=== PATIENT | male | born 1945 | race Caucasian/White ===

== ENCOUNTER 2019-08-26 09:08 | Outpatient (CLI) | payer OTHER, SELFPAY ==
--- NOTE | 2019-08-26 09:17 | MR_ITS ---
WS: [id number] MRI LUMBAR SPINE NONCONTRAST HISTORY: LOW BACK PAIN COMPARISON: 04/17/2018 TECHNIQUE: Sagittal and axial multisequence imaging is submitted. Mild thoracolumbar scoliosis. Multilevel spondylitic changes in the thoracic spine. Straightening of the normal lumbar lordosis. No acute marrow edema. Chronic marrow changes in the end plates of L1 and L2. Anterior wedging of L1-L2 by 10-20% is stable. Severe degenerative disc space na rrowing at T12-L1. Disc desiccation at all levels. Conus terminates normally at L1. L1-L2: Mild bilateral facet joint arthritis, LEFT greater than RIGHT without stenosis. L2-L3: Diffuse annular disc bulging with facet and ligamentum flavum arthritis. Very mild central and RIGHT subarticular recess stenosis. Similar to the prior study. L3-L4: Moderate annular disc bulging with mild facet and ligamentum flavum arthritis. Mild central an d mild to moderate bilateral foraminal stenosis. L4-L5: Diffuse annular disc bulging. There is a more focal posterior central broad-based protrusion d eforming the ventral thecal sac. Similar to the prior examination. Mild to moderate central with RIGH T subarticular recess stenosis and moderate bilateral foraminal stenosis. L5-S1: Mild annular disc bulging with facet joint arthritis and hypertrophy. Similar to the prior olayinka dy. Bilateral renal cysts are again identified. MR/MR lumbar spine wo con* [id number] IMPRESSION: 1. Multilevel degenerative changes throughout the lumbar spine with mild to mo derate stenoses as above. No significant progression since 04/17/2018. 2. Mild to moderate central stenosis at L4-5 and mild central stenosis at L2-3 and L3-4. 3. Mild to moderate RIGHT subarticular recess stenosis and moderate bilateral foraminal stenosis at L4-5. 4. Mild to moderate bilateral foraminal stenosis at L3-4. 5. Stable chronic anterior compression fractures of L1 and L2.
== END 2019-08-26 09:09 | disposition home or self-care (01) ==
LOC: RADWPI 09:12
PROVIDERS: Family Provider Emergency Medicine Emergency Medical Services; PCP Emergency Medicine Emergency Medical Services; Visit Provider Emergency Medicine Emergency Medical Services
DX: M54.5 Low back pain (principal)
CPT/HCPCS: 72148

== ENCOUNTER 2019-09-17 15:20 | Outpatient (CLI) | payer OTHER, SELFPAY ==
--- NOTE | 2019-09-17 15:23 | MR_ITS ---
WS: [id number] MRI THORACIC SPINE WITHOUT CONTRAST TECHNIQUE: Sagittal T1, T2 and STIR imaging. Axial T2 imaging. Noncontrast imaging obtained. CLINICAL INFORMATION: CHRONIC BACK PAIN COMPARISON: None. FINDINGS: Mild thoracic curve. Mild thoracic kyphosis. Anterior hypertrophic changes. A few incidental hemangio mas in the mid thoracic spine. Chronic appearing anterior wedging at T11 and L1. No acute compression fractures. Cord signal is normal. Tiny central disc protrusion at T1-2 with slight effacement of the ventral thecal sac. No other signi ficant disc protrusions or extrusions. Mild right T9-10 and T10-11 bony foraminal narrowing. Moderate facet arthropathy in the lower thoracic spine. Both adrenal glands are normal. Bilateral robson al cysts. Normal caliber thoracic aorta. MR/MR thoracic spin wo con* [id number] IMPRESSION: 1. Mild thoracic curve. Mild thoracic kyphosis. 2. No acute compression fractures. 3. No high-grade central canal stenosis. Cord signal is normal. 4. Tiny central protrusion T1-2 with slight effacement of ventral thecal sac. 5. Moderate facet arthropathy lower thoracic spine. 6. Mild right T9-T10 and T10-11 bony foraminal narrowing.
== END 2019-09-17 15:21 | disposition home or self-care (01) ==
LOC: RADWPI 15:22
PROVIDERS: Family Provider Emergency Medicine Emergency Medical Services; PCP Emergency Medicine Emergency Medical Services; Visit Provider Emergency Medicine Emergency Medical Services
DX: M54.9 Dorsalgia, unspecified (principal); G89.29 Other chronic pain; M47.814 Spondylosis without myelopathy or radiculopathy, thoracic region; M51.24 Other intervertebral disc displacement, thoracic region
CPT/HCPCS: 72146

== ENCOUNTER 2021-02-21 09:09 | Outpatient (CLI) | payer OTHER, SELFPAY ==
--- NOTE | 2021-02-21 | MR_ITS ---
WS: [id number] MRI LUMBAR SPINE WITH CONTRAST TECHNIQUE: Sagittal T1, T2 and STIR imaging. Axial T1 and T2 imaging. Post gadolinium imaging was obt ained. CLINICAL INFORMATION: BACK PAIN, OA, BONE SPURS, ABNORMAL XRAY, REFER TO PAIN MGT COMPARISON: 08/26/19 FINDINGS: Mild lumbar curve. No acute compression. No high-grade central canal stenosis. Mild chronic appearing compression with anterior wedging at L1 and L2 unchanged from August 26, 2019. No high-grade central c anal stenosis. L1-L2: No significant disc bulging. Spinal canal and foramen are patent. Mild facet arthropathy. L2-L3: Mild disc bulging with slight narrowing of the right subarticular recess. Mild facet arthropat hy. Spinal canal and foramen are patent. L3-L4: Mild disc bulging with slight effacement of ventral thecal sac. Mild central canal stenosis. M ild facet arthropathy. Mild right foraminal narrowing. L4-L5: Mild annular bulging with impingement right subarticular recess. Mild central canal stenosis. Mild facet arthropathy. Mild right foraminal narrowing. L5-S1: Mild annular bulging. Spinal canal and foramen are patent. Moderate facet arthropathy. Partially visualized renal cysts. MR/MR lumbar spine wo/w con [id number] IMPRESSION: 1. Mild lumbar curve. No acute compression. No high-grade central canal stenos is. 2. Mild central canal stenosis L2-L3, L3-L4 and L4-L5 unchanged from previous. 3. Mild right L3-L4 and right L4-5 foraminal narrowing. 4. Moderate facet arthropathy L3-L5. 5. Partially visualized renal cysts.
[2021-02-21] MEDS: gadobenate dimeglumine 20 mL vial IV (11:03)
== END 2021-02-21 09:10 | disposition home or self-care (01) ==
LOC: RADSHAW 09:14
PROVIDERS: PCP Emergency Medicine Emergency Medical Services; Visit Provider Emergency Medicine Emergency Medical Services
DX: M19.90 Unspecified osteoarthritis, unspecified site (principal); R93.89 Abnormal findings on diagnostic imaging of other specified body structures; Q61.02 Congenital multiple renal cysts; M47.816 Spondylosis without myelopathy or radiculopathy, lumbar region; M48.061 Spinal stenosis, lumbar region without neurogenic claudication
CPT/HCPCS: 72158; A9577

== ENCOUNTER 2021-02-22 11:36 | Outpatient (CLI) | payer OTHER, SELFPAY ==
--- NOTE | 2021-02-17 11:00 | MR_ITS ---
WS: [id number] MRI THORACIC SPINE with and without contrast. HISTORY: ARTHRITIS, BONE SPURS, REFERRING TO PAIN MANAGEMENT COMPARISON: None available. TECHNIQUE: Multiplanar sequences are performed in sagittal and axial planes. On the survey image through the cervical and thoracic spine there is encroachment upon the ventral ce rvical cord at the C2 level. Only seen on the sagittal sequences this is probably an osteophyte from the posterior C2 vertebral body. There is additional cervical stenosis at multiple levels due to disc and osteophyte disease. Mild straightening of the normal thoracic spine. Very mild anterior wedging of T4. Benign hemangiomas at T6 and T7. There is additional chronic compression fracture of L1 by 20%. No retropulsion. Signal within the cord is normal. No cord atrophy or enlargement. T1-2: Normal. T2-3: Normal. T3-4: Mild RIGHT facet arthritis. T4-5: Mild bilateral facet arthritis and foraminal narrowing. T5-6: Mild bilateral facet arthritis. T6-7: Mild facet arthritis. T7-8: Normal. T8-9: Mild bilateral facet arthritis and foraminal narrowing. T9-10: Mild facet joint arthritis, greatest on the RIGHT. Mild foraminal narrowing. There is additio nal very small RIGHT paracentral disc protrusion. T10-11: Bilateral facet arthritis. T11-12: Normal. Bilateral renal cysts. Postcontrast imaging is negative for discitis or osteomyelitis. No enhancement within the cord. MR/MR thoracic spine wo/w [id number] IMPRESSION: 1. Mild bilateral facet joint arthritis throughout the thoracic spine. 2. Mild remote compression fractures at T6, T7 and L1. 3. No enhancing masses or cord atrophy. 4. Bilateral renal cysts.
[2021-02-17] MEDS: gadobenate dimeglumine 20 mL vial IV (12:11)
--- NOTE | 2021-02-22 | MR_ITS ---
WS: [id number] MRI CERVICAL SPINE NONCONTRAST AND CONTRAST TECHNIQUE: Sagittal T1, T2 and STIR imaging. Axial T2, gradient, and fiesta imaging. Post gadolinium imaging was obtained with fat suppression technique. CLINICAL INFORMATION: CERVICALGIA, REFERRING TO PAIN MGT COMPARISON: None. FINDINGS: Moderate spondylitic changes cervical spine. Straightening of the normal cervical lordosis. Mild disc bulging worse at C4-C6. Cord signal is normal. No abnormal gadolinium enhancement. C2-C3: Small central disc osteophyte complex. Ossification posterior to the C2 vertebral body. Mild c entral canal stenosis. Foramen are patent. Mild facet arthropathy. C3-C4: Slight anterolisthesis C3 on C4. Small broad-based central disc osteophyte complex with slight contact of the cervical cord. Mild central canal stenosis. Mild left foraminal narrowing. Mild facet arthropathy. C4-C5: Central disc osteophyte protrusion with indentation on cervical cord. Mild to moderate central canal stenosis. Moderate bilateral bony foraminal narrowing. Mild facet arthropathy. C5-C6: Central disc osteophyte complex with indentation on the ventral cervical cord. Mild to moderat e central canal stenosis. Moderate bilateral bony foraminal narrowing. Moderate facet arthropathy. C6-C7: Central disc osteophyte complex with slight indentation on cervical cord. Mild central canal s tenosis. Moderate left and no significant right foraminal narrowing. C7-T1: Normal. Visualized brain stem structures: Normal. Prevertebral soft tissues: Normal. MR/MR cervical spine wo/w [id number] IMPRESSION: 1. Straightening of the normal cervical lordosis with moderate spondylitic reina nges. Cord signal is normal. 2. Mild to moderate central canal stenosis C4-C5 and C5-C6 due to central disc osteophyte complexes. Mild central canal stenosis C6-C7. 3. 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 4. Moderate bony foraminal narrowing worse at bilateral C4-5, left C5-C6 and l eft C6-C7.
[2021-02-22] MEDS: gadobenate dimeglumine 20 mL vial IV (12:55)
== END 2021-02-22 11:37 | disposition home or self-care (01) ==
LOC: RADSHAW 11:37
PROVIDERS: PCP Emergency Medicine Emergency Medical Services; Visit Provider Emergency Medicine Emergency Medical Services
DX: M48.02 Spinal stenosis, cervical region (principal); M25.78 Osteophyte, vertebrae; M47.814 Spondylosis without myelopathy or radiculopathy, thoracic region; Q61.02 Congenital multiple renal cysts
CPT/HCPCS: 72156; 72157; A9577

== ENCOUNTER → 2021-03-08 15:35 | Outpatient (BNVA) | payer OTHER, SELFPAY | PROVIDERS: PCP Emergency Medicine Emergency Medical Services; Referring Provider Emergency Medicine Emergency Medical Services; Visit Provider Orthopaedic Surgery | DX: M54.9 Dorsalgia, unspecified (principal) | CPT/HCPCS: 72072; 72110 ==

== ENCOUNTER 2022-07-25 13:52 | Emergency (ER) | payer OTHER, SELFPAY ==
[2022-07-25 14:14] VITALS: BP 128/73; PULSE 74; RESP 14; TEMP 36.9; O2SAT 95; BMI 34.8
--- NOTE | 2022-07-25 14:53 | XR_ITS ---
WS: [email or web address] Exam: XR hip RT 2-3V wo/w pel* [id number] Date/Time of Exam: 07/25/2022 2:59 PM Reason For Exam: fall/pain; one view pelvis too please No acute hip fracture or dislocation. [id number] degenerative changes of the joint compartment and acetabulum. No acute pelvic fracture identified. Signs of diffuse idiopathic skeletal hyperostosi s. XR/XR hip RT 2-3V wo/w pel* [id number] IMPRESSION: 1. Degenerative changes. No acute fracture.
--- NOTE | 2022-07-25 14:53 | CT_ITS ---
WS: [id number] CT LUMBAR SPINE, noncontrast. HISTORY: fall/trauma TECHNIQUE: Contiguous 2.0 mm axial imaging are performed. Sagittal and coronal reformats are submitte d and reviewed. All CT scans at [facility] use at least one of these dose optimization techni ques: automated exposure control; mA and/or kV adjustment per patient size (includes targeted exams w here dose is matched to clinical indication); or iterative reconstruction. IV contrast: None DLP: 1088.05 mGy.cm COMPARISON: Radiographs 03/08/2021 and prior MRI 02/21/2021 Very mild anterior wedging of L1 and L2, similar to the prior MRI from 2020. No new compression fract ure is identified. Diffuse osteopenia. No sacral fracture. L1-2: Facet arthritis. No stenosis. L2-3: Moderate annular disc bulging with osteophytic ridging and facet arthritis. Mild central, bilat eral subarticular recess and foraminal stenosis. L3-4: Diffuse annular disc bulging, osteophytic ridging, ligamentum flavum and facet arthritis. Moder ate to severe central, bilateral subarticular recess and moderate to severe foraminal stenosis. L4-5: Osteophytic ridging, annular disc bulging, facet arthritis. RIGHT paracentral and proximal fora noe disc protrusion. Severe central, bilateral subarticular recess and foraminal stenosis, RIGHT gr eater than LEFT. L5-S1: Mild annular disc bulging. Facet arthritis. Encroachment upon the subarticular recesses and fo ramina. Very tiny RIGHT paracentral disc protrusion with slight contact on the RIGHT S1 nerve root. M oderate bilateral foraminal and RIGHT subarticular recess stenosis. Moderate atherosclerosis throughout the aorta. Bilateral low-attenuation renal masses. Sigmoid divert icular disease. CT/CT lumbar spine wo con* [id number] IMPRESSION: 1. No acute lumbar spine fracture. 2. Long-term stability mild anterior wedging of L1 and L2. 3. Severe central, bilateral subarticular recess and foraminal stenosis at L4- 5. 4. Moderate to severe central, bilateral subarticular recess and moderate to s evere foraminal stenosis at L3-4. 5. Moderate bilateral and RIGHT subarticular recess stenosis at L5-S1. 6. RIGHT paracentral and proximal foraminal disc protrusion at L5-S1 with mild contact on the exiting RIGHT S1 nerve root. 7. Mild central, bilateral subarticular recess and foraminal stenosis at L2-3.
--- NOTE | 2022-07-25 14:53 | XR_ITS ---
WS: [id number] Exam: XR chest 1V portable [id number] Date/Time of Exam: 07/25/2022 2:59 PM Reason For Exam: fatigue/weakness Comparison 10/23/2008. The lungs are clear and fully inflated. Normal cardiomediastinal silhouette. No pleural effusions. Bony structures are intact. XR/XR chest 1V portable [id number] IMPRESSION: 1. No acute cardiopulmonary process.
--- NOTE | 2022-07-25 14:54 | ED_ITS ---
HPI - Fall General: Chief Complaint: Fall Stated Complaint: back low back/ Right hip pain Time Seen by Provider: 07/25/22 14:33 Source: patient Mode of arrival: ambulatory Limitations: no limitations History of Present Illness: Patient is a very nice 77-year-old male who presents to ED today along with his for evaluation of right hip and back pain following a fall 4 days ago. Patient and family states he has had a history of multiple falls over the past several months. They seem to think it is related to hypoglycemia although state they do not often check his blood sugars after falls. Patient does not seem to be able to tell me what exactly it is that causes him to fall (i.e. dizziness/ lightheadedness/stumbling/syncope) but just thinks it is related to his blood sugars. Falls do not seem to be mechanical as he denies tripping. He states 4 days ago he fell onto his right hip and back and has had pain since. He is currently rating it at a 6/10 but states at its worst is 10/10. He is able to ambulate without assistance but complains of pain in the posterior right hip when he does so. He denies striking his head or LOC. No neck pain. Patient states he keeps detailed logs of his blood sugars and states they run anywhere from 140-120s all the way down into the 20-40s. Patient states he takes NovoLog and Lantus. When asked if he has any other complaints currently other than low back and right hip pain he tells me I just do not feel good and thinks his blood sugar is currently low. complaint: fall Onset (ago): day(s) Fall from: standing Fall witnessed: yes, by family Place fall occurred: home Loss of consciousness: None Prolonged down time: no Symptoms prior to fall: other (unknown) Context: history of frequent falls Location of injury: back Severity: moderate Severity scale (1-10): 6 Associated symptoms-after fall: Denies abdominal pain, chest pain, confusion, difficulty walking, headache(s), hematuria, lightheadedness, neck pain or vertigo Review of Systems Const: Reports: other (reports not feeling well ); Denies: fever(s), chills, body aches, fatigue or malaise Eyes: Denies: change in vision, blurry vision, photophobia, eye discharge, floaters or seeing flashes ENMT: Denies: throat pain, odynophagia, ear or mastoid pain, ear discharge, nasal discharge, epistaxis or sinus pain Card: Denies: chest pain, palpitations, lightheadedness, syncope or pre- syncope Resp: Denies: dyspnea or pain on inspiration GI: Denies: abdominal pain : Denies: flank pain or hematuria Musc: Reports: back pain and joint pain (R hip); Denies: neck pain, extremity pain, extremity swelling, joint swelling, joint redness, joint warmth, joint stiffness, limited range of motion, muscle cramps or muscle weakness Skin/Breast: Denies: rash Neuro: Reports: frequent falls; Denies: headache(s), numbness in extremities, weakness in extremities, sensory changes, lack of coordination, difficulty walking, dizziness, vertigo, confusion, behavioral changes, Slurred speech present, difficulty communicating thoughts or seizure-like activity PFSH ED PFSH: Medical History Arthritis Depressive disorder, not elsewhere classified Diabetes mellitus Essential (primary) hypertension Hypertension Insomnia Surgical History History of heart artery stent History of heart surgery History of thumb surgery History of tonsillectomy Family History Other Cancer Diabetes Social History Household members: spouse Marital status: Current occupational status: retired Physical Exam Const: COMMON NORMALS: no acute distress, average body habitus, patient oriented x3, no limitations, healthy appearing, alert and well nourished GENERAL APPEARANCE: cooperative ORIENTATION/CONSCIOUSNESS: Yes awake, Yes oriented to person, Yes oriented to place and Yes oriented to time HENMT: COMMON NORMALS: normocephalic, atraumatic and TM's normal bilaterally HEAD & SCALP: normal to inspection, normocephalic and atraumatic; no Berger's sign, no hematoma and no raccoon eyes FACE & SINUS: normal facial exam TYMPANIC MEMBRANE: TM's normal bilaterally MOUTH: other (no intraoral injuries noted) Eye: COMMON NORMALS: Equal, round and reactive pupils present and EOMs intact bilaterally GENERAL EYE: appearance normal, both eyes and all related structures and normal light reflex PUPIL: Yes Equal, round and reactive pupils present DIRECT OPHTHALMOSCOPY: Yes normal light reflex Neck/C-Spine: COMMON NORMALS: full ROM GENERAL: Yes normal visual inspection CERVICAL SPINE: Yes cervical ROM normal, No pain with cervical ROM, No Cervical spine tenderness, No step off deformity and No Paracervical muscle tenderness Chest: COMMONS NORMALS: normal inspection of the chest and normal palpation of entire chest wall Resp: COMMON NORMALS: normal respiratory effort and clear to auscultation bilaterally AUSCULTATION: clear to auscultation bilaterally Cardio: COMMON NORMALS: regular rate and regular rhythm RATE: regular rate RHYTHM: regular rhythm GI: COMMON NORMALS: Normal to inspection, nondistended, normoactive bowel sounds present, Soft to palpation, non-tender, No hepatosplenomegaly present and no masses INSPECTION: Yes normal to inspection and No abdominal wall ecchymosis AUSCULTATION: Yes normoactive bowel sounds PALPATION: Yes Soft to palpation and Yes No hepatosplenomegaly present Back/Pelvis: COMMON NORMALS: thoracic and lumbar spine normal to inspection THORACIC SPINE/UPPER BACK: Yes normal to inspection, No thoracic spinal tenderness and No paraspinal muscle tenderness LUMBAR SPINE/LOWER BACK: Yes normal to inspection, Yes pain with ROM, Yes lumbar spinal tenderness (lower L spine), Yes paraspinal muscle tenderness Lumbar paraspinal muscle tenderness: right and Yes straight leg raise negative bilaterally PELVIS: Yes buttocks normal and No sciatic notch tenderness SACRUM: no tenderness COCCYX: no tenderness Extremity: COMMON NORMALS: normal to inspection, full ROM, capillary refill normal, no joint enlargement, no clubbing, cyanosis or edema, no calf tenderness and no pedal edema GENERAL: Yes normal exam except as noted RIGHT LOWER EXTREMITY: Yes hip joint Right hip: Yes palpation (TTP posteriorly), Yes ROM (normal but elicits discomfort) and Yes neurovascular exam (normal) Neuro: KEY COMA SCALE: document GCS findings Key coma scale eye opening: Spontaneous [place] coma scale verbal response: Orientated Key coma scale motor response: Obey commands [place] coma scale total score: 15 COMMON NORMALS: patient oriented x3, CN's II-XII intact bilaterally, moves all extremi ties, no focal motor deficits, no sensory deficits noted and gait normal SENSORIUM/ORIENTATION: Yes alert, Yes oriented to person, Yes oriented to place and Yes oriented to time SPEECH: speech normal GAIT: Yes Normal gait present Skin: COMMON NORMALS: no rashes or lesions noted GENERAL SKIN EXAM: no rashes or lesions noted TRAUMA: no lacerations or abrasions Course Vital Signs: Vital signs: Vital Signs Temperature 98.4 F 07/25/22 14:14 Pulse Rate 74 07/25/22 17:02 Respiratory Rate 16 07/25/22 16:32 Blood Pressure 143/82 07/25/22 17:02 Pulse Oximetry 94 07/25/22 17:02 Oxygen Delivery Me thod Room Air 07/25/22 16:32 MDM - Fall Medical Decision Making Patient here with lower back pain and right hip pain following a fall 4 days ago. XR/CT scans negative for acute injuries unknown exact details into what caused him to fall that he believes it is secondary to hypoglycemia. He has had several other falls over the past few months. He does have detailed glucose logs and sugars range anywhere from 140 down into the 20s. We discussed decreasing his sliding scale insulin or even discontinuing it altogether to see if this helps his hypoglycemic episodes. Discussed in length diabetic diet. Patient's vital signs are stable. POC glucose upon arrival was in the 40s. Patient admittedly did not feel well however after eating/drinking he states he feels much better. Patient's blood work overall is nonactionable. His baseline troponin was elevated at 18. He has no complaints of chest pain. His EKG shows no ischemic changes. No priors. He does not want to stay for 2-hour troponin. I think this is reasonable. Recommend patient follow-[facility] for [facility] of his blood sugars. They can also follow-up with him in regards to the hip and back pain if they fail to improve with conservative therapies at home. He is requesting something to help with his discomfort. He states he already takes meloxicam daily. Lab Data 07/25/22 15:33 07/25/22 15:33 Radiology Impressions Chest X-Ray 07/25/22 14:53 IMPRESSION: 1. No acute cardiopulmonary process. Hip/Pelvis X-Ray 07/25/22 14:53 IMPRESSION: 1. Degenerative changes. No acute fracture. Lumbar Spine CT 07/25/22 14:53 IMPRESSION: 1. No acute lumbar spine fracture. 2. Long-term stability mild anterior wedging of L1 and L2. 3. Severe central, bilateral subarticular recess and foraminal stenosis at L4- 5. 4. Moderate to severe central, bilateral subarticular recess and moderate to severe foraminal stenosis at L3-4. 5. Moderate bilateral and RIGHT subarticular recess stenosis at L5-S1. 6. RIGHT paracentral and proximal foraminal disc protrusion at L5-S1 with mild contact on the exiting RIGHT S1 nerve root. 7. Mild central, bilateral subarticular recess and foraminal stenosis at L2-3. Laboratory Results WBC 6.9 10^3/uL (4.0-10.0) 07/25/22 15:33 RBC 5.92 10^6/uL (4.1-5.3) H 07/25/22 15:33 Hgb 17.5 g/dL (11.7-16.6) H 07/25/22 15:33 Hct 51.9 % (42.0-52.0) 07/25/22 15:33 MCV 87.7 fl (80-94) 07/25/22 15:33 MCH 29.6 pg (28.0-34.0) 07/25/22 15:33 MCHC 33.7 g/dL (30.0-36.0) 07/25/22 15:33 RDW 12.1 % (12.1-15.1) 07/25/22 15:33 Plt Count 239 10^3/cmm (130-400) 07/25/22 15:33 MPV 10.0 fL (7.4-10.4) 07/25/22 15:33 Neut % (Auto) 59.6 % 07/25/22 15:33 Lymph % (Auto) 25.5 % 07/25/22 15:33 [place] % (Auto) 10.8 % 07/25/22 15:33 Eos % (Auto) 2.5 % 07/25/22 15:33 Baso % (Auto) 1.2 % 07/25/22 15:33 Neut # (Auto) 4.08 10^3/uL (1.8-7.7) 07/25/22 15:33 Lymph # (Auto) 1.8 10^3/uL (0.8-4.8) 07/25/22 15:33 [place] # (Auto) 0.7 10^3/uL (0.2-0.9) 07/25/22 15:33 Eos # (Auto) 0.2 10^3/uL (0.0-0.8) 07/25/22 15:33 Baso # (Auto) 0.1 10^3/uL (0.0-0.1) 07/25/22 15:33 Nucleated RBC % (auto) 0 % 07/25/22 15:33 Nucleated RBCs # 0.0 /100WBC 07/25/22 15:33 Sodium 142 mmol/L (136-145) 07/25/22 15:33 Potassium 4.3 mmol/L (3.5-5.1) 07/25/22 15:33 Chloride 104 mmol/L (98-107) 07/25/22 15:33 Carbon Dioxide 27 mmol/L (22-29) 07/25/22 15:33 Anion Gap 15.3 (5-19) 07/25/22 15:33 BUN 18 mg/dL (8-23) 07/25/22 15:33 Creatinine 1.0 mg/dL (0.7-1.2) 07/25/22 15:33 GFR Calculation Not Reportable 07/25/22 15:33 Glucose 48 mg/dL (65-115) L 07/25/22 15:33 POC Glucose 49 mg/dL (70-110) L 07/25/22 14:58 Calculated Osmolality 293 mOsm/kg (285-295) 07/25/22 15:33 Calcium 9.4 mg/dL (8.5-10.5) 07/25/22 15:33 Total Bilirubin 0.3 mg/dL (0.15-1.2) 07/25/22 15:33 AST 27 U/L (0-40) 07/25/22 15:33 ALT 41 U/L (0-41) 07/25/22 15:33 Alkaline Phosphatase 61 U/L (40-130) 07/25/22 15:33 Troponin T Baseline 18 ng/L (0-15) H 07/25/22 15:33 Total Protein 7.6 g/dL (6.6-8.7) 07/25/22 15:33 Albumin 4.6 g/dL (3.5-5.2) 07/25/22 15:33 Globulin 3.0 g/dL (1.3-4.6) 07/25/22 15:33 Urine Color Yellow (Yellow) 07/25/22 16:29 Urine Appearance Clear (CLEAR) 07/25/22 16:29 Urine pH 7 (5-7) 07/25/22 16:29 Ur Specific [place] 1.015 (1.005-1.030) 07/25/22 16:29 Urine Protein Neg (Negative) 07/25/22 16:29 Urine Glucose (UA) Norm (Normal) 07/25/22 16:29 Urine Ketones Negative (Negative) 07/25/22 16:29 Urine Blood Neg (Negative) 07/25/22 16:29 Urine Nitrate Negative (Negative) 07/25/22 16:29 Urine Bilirubin Neg (Negative) 07/25/22 16:29 Urine Urobilinogen Norm mg/dL (Negative) 07/25/22 16:29 Ur Leukocyte Esterase Negative (Negative) 07/25/22 16:29 Discharge Plan Discharge Patient Disposition: Home Clinical Impression: Hypoglycemia, Acute exacerbation of chronic low back pain, Acute pain of right hip Fall Qualifiers: Encounter type: initial encounter Qualified Code(s): W19.XXXA - Unspecified fall, initial encounter Condition: Stable Prescriptions: New hydrocodone-acetaminophen 5-325 mg tablet 1 tab PO Q6H PRN (Reason: pain) Qty: 14 0RF No Action lisinopril 40 mg tablet 40 mg PO DAILY cyclobenzaprine 10 mg tablet 10 mg PO TID furosemide 20 mg tablet 10 mg PO QAM aspirin [Miky Low Dose Aspirin] 81 mg tablet,delayed release (DR/EC) 81 mg PO DAILY pravastatin 40 mg tablet 40 mg PO DAILY carvedilol 12.5 mg tablet 12.5 mg PO BID amlodipine 10 mg tablet 10 mg PO DAILY insulin aspart U-100 [Novolog U-100 Insulin aspart] 100 unit/mL solution 5 - 30 unit SUBCUT TID Lantus Solostar U-100 Insulin 100 unit/mL (3 mL) insulin pen 55 unit SUBCUT BID naproxen 500 mg tablet 500 mg PO BID (DME) lancets [2-In-1 Lancet Device] 30 gauge misc See Rx Instructions .Route Rx Instructions: As directed meloxicam 15 mg tablet 15 mg PO DAILY Discharge Orders: Discharge ED (Routine); Ordered 07/25/22 Ordered By: Josephine Lorenz Referrals: Eleazar Cali, DO [Primary Care Provider] - Patient Instructions: Opioid Safety, Pain Management Activity Restrictions/Additional Instructions: As we discussed I would like you to follow-up with your [facility] for further evaluation of the back and right hip pain if they fail to improve with conservative therapies. You may also speak to them in reg ards to your fluctuating blood sugars. We spoke about potentially decreasing your sliding scale insulin to hopefully help prevent low blood sugars. 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
[2022-07-25 15:02] LABS: Glucose Point of Care 49 mg/dL (70-110)
--- NOTE | 2022-07-25 15:03 | PC.NURSE ---
pt BS was checked and it was 49. pt was given cranberry juice, orange juice and applesauce.
[2022-07-25 15:04] VITALS: BP 119/62; RESP 18; O2SAT 96
--- NOTE | 2022-07-25 15:28 | ECG_ITS ---
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 Measurements Intervals [place] Rate: 77 P: 54 [place]: 180 QRS: 85 QRSD: 127 T: -11 QT: 383 QTc: 435 Interpretive Statements SINUS RHYTHM MODERATE INTRAVENTRICULAR CONDUCTION DELAY [110+ ms QRS DURATION] NONSPECIFIC ST & T-WAVE ABNORMALITY No previous ECG available for comparison Electronically Signed On 07-25-2022 16:22:13 CDT by Jasmin Penny M.D. [id number]
[2022-07-25 15:47] LABS: Basophils # 0.1 10^3/uL (0.0-0.1); Basophils % 1.2 %; Eosinophils # 0.2 10^3/uL (0.0-0.8); Eosinophils % 2.5 %; Hematocrit 51.9 % (42.0-52.0); Hemoglobin 17.5 g/dL (11.7-16.6); Lymphocytes # 1.8 10^3/uL (0.8-4.8); Lymphocytes % 25.5 %; Mean Corpuscular HGB Conc 33.7 g/dL (30.0-36.0); Mean Corpuscular Hemoglobin 29.6 pg (28.0-34.0); Mean Corpuscular Volume 87.7 fl (80-94); Monocytes # 0.7 10^3/uL (0.2-0.9); Monocytes % 10.8 %; Neutrophils # 4.08 10^3/uL (1.8-7.7); Neutrophils % 59.6 %; Nucleated Red Blood Cells % 0 %; Platelet Count 239 10^3/cmm (130-400); Red Blood Count 5.92 10^6/uL (4.1-5.3); Red Cell Distribution Width 12.1 % (12.1-15.1); White Blood Count 6.9 10^3/uL (4.0-10.0)
[2022-07-25 16:05] LABS: Alanine Aminotransferase 41 U/L (0-41); Albumin Level 4.6 g/dL (3.5-5.2); Alkaline Phosphatase 61 U/L (40-130); Anion Gap 15.3 (5-19); Aspartate Amino Transferase 27 U/L (0-40); Blood Urea Nitrogen 18 mg/dL (8-23); Calcium 9.4 mg/dL (8.5-10.5); Carbon Dioxide 27 mmol/L (22-29); Chloride 104 mmol/L (98-107); Creatinine Clr Calc Pharmacy 81.7368; Glucose 48 mg/dL (65-115); Osmolality Calculated 293 mOsm/kg (285-295); Potassium 4.3 mmol/L (3.5-5.1); Sodium 142 mmol/L (136-145); Total Bilirubin 0.3 mg/dL (0.15-1.2); Total Protein 7.6 g/dL (6.6-8.7)
[2022-07-25 16:14] LABS: Troponin(5th) Baseline 18 ng/L (0-15)
[2022-07-25 16:24] VITALS: BP 130/72; PULSE 75; RESP 17; O2SAT 95
[2022-07-25 16:32] VITALS: BP 138/67; PULSE 73; RESP 16; O2SAT 96
[2022-07-25 16:59] LABS: Add Urine Microscopic? NO; Charge for UA Resulting for Rev
[2022-07-25 17:02] VITALS: BP 143/82; PULSE 74; O2SAT 94
[2022-07-25 17:03] LABS: Bilirubin Urine Neg (Negative); Blood Urine Neg (Negative); Glucose Urine UA Norm (Normal); Ketones Urine Negative (Negative); Leukocyte Esterase Urine Negative (Negative); Nitrate Urine Negative (Negative); Protein Urine Neg (Negative); Specific Gravity, Urine 1.015 (1.005-1.030); Urine Appearance Clear (CLEAR); Urine Color Yellow (Yellow); Urobilinogen Urine Norm (Negative); pH Urine 7 (5-7)
== END 2022-07-25 17:02 | disposition home or self-care (01) ==
PROVIDERS: Emergency Provider Physician Assistant; PCP Emergency Medicine Emergency Medical Services
DX: E11.649 Type 2 diabetes mellitus with hypoglycemia without coma (principal); M25.551 Pain in right hip; M54.50 Low back pain, unspecified; G89.29 Other chronic pain; I10 Essential (primary) hypertension; Z79.4 Long term (current) use of insulin
CPT/HCPCS: 36415; 36416; 71045; 72131; 73502; 80053; 81003; 82962; 84484; 85025; 93005; 99285

== ENCOUNTER → 2022-08-21 13:19 | Outpatient (BNVA) | payer OTHER, SELFPAY | PROVIDERS: PCP Emergency Medicine Emergency Medical Services; Referring Provider Emergency Medicine Emergency Medical Services; Visit Provider Specialist | DX: S83.289A Other tear of lateral meniscus, current injury, unspecified knee, initial encounter (principal); X58.XXXA Exposure to other specified factors, initial encounter; M17.12 Unilateral primary osteoarthritis, left knee | CPT/HCPCS: 73560; 73565; 99204 ==

== ENCOUNTER 2022-09-22 10:45 | Outpatient (CLI) | payer OTHER, SELFPAY ==
--- NOTE | 2022-09-22 11:00 | MR_ITS ---
WS: [id number] MRI LEFT KNEE HISTORY: No injury. Pain anterior and medially. COMPARISON: Radiographs 08/21/2022 Anterior cruciate ligament: Intact. Posterior cruciate ligament: Intact. Medial collateral ligament: Intact. Posterior lateral corner structures: Very small amount of increased T2 signal fluid within the fibula r collateral ligament. No full-thickness tear. Medial menisci: Intact. Normal signal, size and shape. Lateral meniscus: Mild intrasubstance degeneration in the posterior horn with fraying along the free edge and body of the meniscus. No definite tear. Extensor mechanism: Distal quadriceps tendon and patellar tendons are intact. Fluid and soft tissue: Small suprapatellar joint effusion. No Gonzalez's cyst. Osseous and articular structures: Patellofemoral compartment: Normal. Medial compartment: Mild narrowing of the medial compartment. Moderate chondromalacia involving the c artilage of the femoral condyle towards the intercondylar notch. No full-thickness defects. No marrow edema. Small marginal osteophytes. Lateral compartment: Mild narrowing lateral compartment with mild chondromalacia. No full-thickness d efects. Subcutaneous edema around the knee. Greatest along the lateral knee joint. MR/MR knee LT wo con* [id number] IMPRESSION: 1. No meniscal tears. Small amount of intrasubstance degeneration and fraying involving the posterior horn of the lateral meniscus. 2. Mild narrowing of the medial and lateral compartments with chondromalacia a s above. No full-thickness cartilage defects and no marrow edema. 3. Very mild fibular collateral ligament sprain.
== END 2022-09-22 10:46 | disposition home or self-care (01) ==
PROVIDERS: PCP Emergency Medicine Emergency Medical Services; Visit Provider Specialist
DX: S83.402A Sprain of unspecified collateral ligament of left knee, initial encounter (principal); M94.262 Chondromalacia, left knee; X58.XXXA Exposure to other specified factors, initial encounter; Y93.9 Activity, unspecified; Y92.9 Unspecified place or not applicable; Y99.9 Unspecified external cause status
CPT/HCPCS: 73721

== ENCOUNTER 2022-12-21 11:33 | Outpatient (CLI) | payer OTHER, SELFPAY | END 2022-12-21 11:34 | disposition home or self-care (01) | LOC: SPT 11:34 | PROVIDERS: PCP Emergency Medicine Emergency Medical Services; Visit Provider Nurse Practitioner | DX: M25.562 Pain in left knee; M17.12 Unilateral primary osteoarthritis, left knee; S83.62XA Sprain of the superior tibiofibular joint and ligament, left knee, initial encounter; X58.XXXA Exposure to other specified factors, initial encounter | CPT/HCPCS: 20610; 97760; 99214; J1100; J2795; J3301; L1812 ==

== ENCOUNTER → 2023-03-21 09:20 | Outpatient (BNVA) | payer OTHER, SELFPAY | PROVIDERS: PCP Emergency Medicine Emergency Medical Services; Visit Provider Nurse Practitioner | DX: S83.62XA Sprain of the superior tibiofibular joint and ligament, left knee, initial encounter (principal); M17.12 Unilateral primary osteoarthritis, left knee; X58.XXXA Exposure to other specified factors, initial encounter | CPT/HCPCS: 99214 ==